=== PATIENT | male | born 1985 | race Caucasian/White ===

== ENCOUNTER 2018-08-30 15:14 | Emergency (ER) | payer OTHER, SELFPAY ==
[2018-08-30 15:15] VITALS: BP 157/93; PULSE 93; RESP 16; TEMP 36.8; O2SAT 99; BMI 28.5
--- NOTE | 2018-08-30 15:41 | ED.VISSUMM ---
- ER Visit Summary Date of Service: 08/30/18 Chief Complaint: [Injury to left hand] History of Present Illness: The patient is a 33 M [presents the emergency department after lacerating his left hand with a knife while cutting some banding just prior to arrival in the emergency department. Patient is right-hand dominant. Patient is unsure of his last tetanus.] Physical Examination: Left hand-patient has a 2.5 cm laceration over the thenar eminence. Patient has normal range of motion flexion extension of the thumb. Patient has normal sensation. He is neurovascular intact.] Test Results: [None indicated] Emergency Department Course and Treatment: [Laceration repair-wound sterilely draped and prepped. Wound cleansed with Shur-Clens and irrigated with copious saline. Wound anesthetized with 1% lidocaine total of 4 cc. Using 5-0 nylon a total of 3 single interrupted sutures placed with good wound edge approximation. Patient tired procedure well.] Treatment Plan: [Patient to follow-up with primary care physician in 10 days for suture removal. Patient to return if increasing pain, redness, purulent drainage, or conditions worsen anyway.] Disposition: [Discharged home in stable condition] Impression: [Left hand laceration 2.5 cm-simple repair] This note was generated with [employer] dictation software. It may contain incorrect words, spelling, and punctuation that were not noted in review of the chart prior to signing ED Disposition - Plan for ED Patient: Referrals: Care Physician,No Primary [Primary Care Provider] -
--- NOTE | 2018-08-30 15:42 | ED.DEP ---
ED Disposition - Plan for ED Patient: Instructions: ED Laceration Hand Referrals: Care Physician,No Primary [Primary Care Provider] - Carmine Nazario MD [STAFF PHYSICIAN] - 10 Day for suture removal
[2018-08-30] MEDS: Diphth,Pertuss(Acell),Tet Vac 0.5 ML Vial IM (15:45)
== END 2018-08-30 16:10 | disposition home or self-care (01) ==
PROVIDERS: Emergency Provider Emergency Medicine
DX: S61.412A Laceration without foreign body of left hand, initial encounter (principal); W26.0XXA Contact with knife, initial encounter; Y93.89 Activity, other specified; Y92.89 Other specified places as the place of occurrence of the external cause; Y99.8 Other external cause status
CPT/HCPCS: 12001; 90471; 90715; 99283